=== PATIENT | male | born 1975 | race African-American/Black ===

== ENCOUNTER 2018-03-08 12:46 | Inpatient (IN) | payer OTHER ==
[2018-03-08 13:04] VITALS: BMI 42.4
--- NOTE | 2018-03-08 13:22 | PDOC ---
History of Present Illness - General Chief Complaint: Shortness of Breath Stated Complaint: SHORTNESS OF BREATH Time Seen by Provider: 03/08/18 13:22 - History of Present Illness Initial Comments: 03/08/18 14:15 Mr. Marte is a 42 yo male w/ pmh of HTN, HLD who presents for evaluation of several day history of right sided lower chest/upper abdominal pain. He reports this has been constant since Tuesday when he presented to [facility] however he elected to leave AMA after being told he would need a CT scan. Patient blood pressure in triage was 219/141; patient reports he is not on anti- hypertensives as he does not have a PCP. Patient also endorses some difficulty breathing which he had initially attributed to cats in the house where he is currently living. He further endorses significant cough productive of phlegm. Allergies: penicillin. Past History - Past Medical History Allergies/Adverse Reactions: Allergies Allergy/AdvReac Type Severity Reaction Status Date / Time No Known Allergies Allergy Verified 03/08/18 13:01 Home Medications: Ambulatory Orders NK [No Known Home Medication] 03/08/18 COPD: No CHF: No HTN: Yes (obesity) - Suicide/Smoking/Psychosocial Hx Smoking History: Current every day smoker Have you smoked in the past 12 months: No Number of Cigarettes Smoked Daily: 20 Information on smoking cessation initiated: No Hx Alcohol Use: Yes (6 pack daily) Drug/Substance Use Hx: No Substance Use Type: Alcohol Review of Systems - Review of Systems Comments:: 03/08/18 14:20 GENERAL/CONSTITUTIONAL: No fever or chills. No weakness. HEAD, EYES, EARS, NOSE AND THROAT: No change in vision. No ear pain or discharge. No sore throat. CARDIOVASCULAR: +Right sided chest pain w/ SOB as described. RESPIRATORY: +Intermittent cough for several days. GASTROINTESTINAL: +RUQ constant sharp pain. No nausea, vomiting, diarrhea or constipation. GENITOURINARY: No dysuria, frequency, or change in urination. MUSCULOSKELETAL: No joint or muscle swelling or pain. No neck or back pain. SKIN: No rash NEUROLOGIC: No headache, vertigo, loss of consciousness, or change in strength/ sensation. ENDOCRINE: No increased thirst. No abnormal weight change HEMATOLOGIC/LYMPHATIC: No anemia, easy bleeding, or history of blood clots. ALLERGIC/IMMUNOLOGIC: No hives or skin allergy. *Physical Exam - Vital Signs Last Vital Signs Temp Pulse Resp BP Pulse Ox 98.9 F 102 H 18 219/141 H 100 03/08/18 13:01 03/08/18 13:01 03/08/18 13:01 03/08/18 13:01 03/08/18 13:01 - Physical Exam Comments: 03/08/18 14:21 GENERAL: +Patient morbidly obese, in visible pain. Awake, alert, and fully oriented HEAD: No signs of trauma, normocephalic, atraumatic EYES: PERRLA, EOMI, sclera anicteric, conjunctiva clear ENT: Auricles normal inspection, hearing grossly normal, nares patent, oropharynx clear without exudates. Moist mucosa NECK: Normal ROM, supple, no lymphadenopathy, JVD, or masses LUNGS: +Exam limited by body habitus and cooperation. Speaks full sentences HEART: + Tachycardic, regular rhythm, normal S1 and S2, no murmurs, rubs or gallops, peripheral pulses normal and equal bilaterally. ABDOMEN: Soft, nontender to deep palpation, normoactive bowel sounds. No guarding, no rebound. No masses EXTREMITIES: Normal inspection, Normal range of motion, no edema. No clubbing or cyanosis. NEUROLOGICAL: Cranial nerves II through XII grossly intact. Normal speech, normal gait, no focal sensorimotor deficits SKIN: Warm, Dry, normal turgor, no rashes or lesions noted. 03/08/18 14:39 ED Treatment Course - LABORATORY CBC & Chemistry Diagram: 03/08/18 14:24 03/08/18 14:24 Medical Decision Making - Medical Decision Making 03/08/18 14:38 Mr. Marte is a 42 yo male w/ pmh as described who presents for evaluation of significant hypertension with chest pain and cough concerning for aortic dissection vs. PE vs. hypertensive urgency vs. viral illness. Workup started with labs, EKG, CXR. Will order CT/US pending kidney function. 20mg labetalol given for blood pressure control in addition to duoneb breathing treatment and 4mg morphine for pain control. 03/08/18 15:03 Repeat blood pressure 159 systolic. Additional 40 mg labetalol given for increased BP control given possibility of dissection. 03/08/18 15:37 Patient evaluated at bedside w/ US. No acute aortic dissection appreciated 2/ aortic width 3cm at widest portion. Stones noted in gall bladder without wall thickening. No pleural effusion / b-lines noted on lung exam. Exam somewhat limited by patient's body habitus. Additional 40mg of labetalol again given for BP control. Formal RUQ US ordered for further evaluation of Gall bladder. EKG regular rate, regular rhythm, normal access, normal interval, no ST elevations or depressions. RBBB noted. Grossly normal EKG. 03/08/18 17:01 Patient noted to have elevated d-dimer as below. Unable to perform CTA given elevated creatinine. Will administer lovenox for possible PE. US DVT study likewise ordered. 03/08/18 17:47 US confirmed stones w/out evidence of cholecystitis. DVT study negative. Admitting patient for V/Q study and further BP management. 03/08/18 17:59 Hospitalist paged for admission. 03/08/18 18:07 Patient admitted to hospitalist. Laboratory Results - last 24 hr 03/08/18 03/08/18 03/08/18 14:24 14:24 14:24 WBC 8.1 RBC 4.55 Hgb 14.2 Hct 43.9 MCV 96.5 H MCH 31.2 MCHC 32.3 RDW 16.2 H Plt Count 266 MPV 7.3 L Absolute Neuts (auto) 5.7 Neutrophils % 69.7 Lymphocytes % 21.1 Monocytes % 7.3 Eosinophils % 1.4 Basophils % 0.5 Nucleated RBC % 0 PT with INR 12.00 INR 1.02 PTT (Actin FS) 30.8 D-Dimer Sodium 140 Potassium 4.0 Chloride 104 Carbon Dioxide 29 Anion Gap 7 L BUN 14 Creatinine 1.7 H Creat Clearance w eGFR 44.64 Random Glucose 98 Lactic Acid Calcium 9.3 Total Bilirubin 0.3 AST 27 ALT 32 Alkaline Phosphatase 106 Total Protein 8.1 Albumin 3.7 Blood Type Antibody Screen 03/08/18 03/08/18 03/08/18 14:24 14:36 14:40 WBC RBC Hgb Hct MCV MCH MCHC RDW Plt Count MPV Absolute Neuts (auto) Neutrophils % Lymphocytes % Monocytes % Eosinophils % Basophils % Nucleated RBC % PT with INR INR PTT (Actin FS) D-Dimer 833 H Sodium Potassium Chloride Carbon Dioxide Anion Gap BUN Creatinine Creat Clearance w eGFR Random Glucose Lactic Acid 1.0 Calcium Total Bilirubin AST ALT Alkaline Phosphatase Total Protein Albumin Blood Type O POSITIVE Antibody Screen Negative *DC/Admit/Observation/Transfer Diagnosis at time of Disposition: Hypertensive urgency Hypertension Qualifiers: Hypertension type: unspecified Qualified Code(s): I10 - Essential (primary) hypertension Cholelithiasis Qualifiers: Cholelithiasis location: gallbladder Cholecystitis presence: without cholecystitis Biliary obstruction: without biliary obstruction Qualified Code(s) : K80.20 - Calculus of gallbladder without cholecystitis without obstruction Abdominal pain Qualifiers: Abdominal location: right upper quadrant Qualified Code(s): R10.11 - Right upper quadrant pain - Discharge Dispostion Decision to Admit order: Yes - Referrals - Patient Instructions - Post Discharge Activity
--- NOTE | 2018-03-08 13:49 | PDOC ---
Attending Attestation - HPI HPI: 03/08/18 14:15 This patient is a 42 year old male with PMHx of HTN (never been treated with medication due to insurance issues),HLD, who presents with 5 days of RUQ and R lower chest pain. Patient states that Tuesday he was seen at [facility], left AMA when told he would need a CT scan. He is now complaining of RUQ and lower chest pain that he describes as severe, constant. Hr is also having difficulty breathing. Patient also endorses some difficulty breathing (believes he is allergic to cats). He further endorses significant cough productive of phlegm. Allergies: penicillin. Social Hx: 6 pack daily, 20 cig/day. PCP: none <Adelaida Power - Last Filed: 03/08/18 14:46> - Resident Resident Name: Edmond Zhao - ED Attending Attestation I have performed the following: I have examined & evaluated the patient, The case was reviewed & discussed with the resident, I agree w/resident's findings & plan, Exceptions are as noted - Physicial Exam PE: 03/08/18 16:00 Patient is awake and alert, obese, hypertensive, in mild distress Normocephalic, atraumatic PERRLA, EOMI No JVD CTA RRR No lower extremity edema - Medical Decision Making 03/08/18 16:00 Patient is a 42-year-old male with history of hypertension, noncompliant with his medication regimen who presents with blood pressure of 219/140 with right- sided abdominal/right chest pain. Symptoms consistent with hypertensive emergency. Will initiate labetalol boluses. Differential diagnoses includes cholelithiasis versus PE versus dissection versus ACS. EKG shows no evidence of acute ischemia, RBBB is noted. Chest x-ray reveals cardiomegaly but no evidence of widened mediastinum. Bedside ultrasound shows diffuse hypokinesis but no evidence of a pleural effusion or an aortic flap. We'll obtain d-dimer. Will obtain right upper quadrant ultrasound. Will reassess. <Claude Morgan - Last Filed: 03/08/18 16:02>
[2018-03-08] MEDS ORDERED: LABETALOL HCL 5 MG/1 ML (100MG/20 ML VIAL) IVPUSH ONE ×3 (14:11→15:30)
[2018-03-08] MEDS ORDERED: ALBUTEROL SO4 2.5/IPRATROPIUM 0.5 INH SOL 3 ML VIAL.NEB. NEB ONE ×2 (14:12→21:55)
[2018-03-08] MEDS ORDERED: morphine CARPU-JECT 4 MG/1 ML DISP.SYRIN IVPUSH ONE (14:31)
[2018-03-08 14:35] LABS: BASO % 0.5 % (0-2.0); EOS % 1.4 % (0-4.5); HEMATOCRIT 43.9 % (35.4-49); HEMOGLOBIN 14.2 GM/dL (11.7-16.9); LYMPH % 21.1 % (8-40); MCH 31.2 pg (25.7-33.7); MCHC 32.3 g/dl (32.0-35.9); MEAN CELL VOLUME 96.5 fl (80-96); MEAN PLT VOLUME 7.3 fl (7.5-11.1); MONO % 7.3 % (3.8-10.2); NEUT % 69.7 % (42.8-82.8); PLATELET COUNT 266 K/MM3 (134-434); RBC 4.55 M/mm3 (4.00-5.60); RDW 16.2 % (11.9-15.9); WHITE BLOOD COUNT 8.1 K/mm3 (4.0-10.0)
[2018-03-08 15:06] LABS: INR 1.02 (0.83-1.09)
[2018-03-08 15:09] LABS: ACTIVATED PTT 30.8 SECONDS (25.2-36.5)
[2018-03-08 15:12] LABS: ALBUMIN 3.7 g/dl (3.4-5.0); ALK PHOS 106 U/L (45-117); ANION GAP 7 MMOL/L (8-16); BILIRUBIN,TOTAL 0.3 mg/dL (0.2-1); BLOOD UREA NITROGEN 14 mg/dL (7-18); CALCIUM 9.3 mg/dL (8.5-10.1); CHLORIDE 104 mmol/L (98-107); CO2 29 mmol/L (21-32); CREATININE 1.7 mg/dL (0.55-1.3); GLUCOSE,RANDOM 98 mg/dL (74-106); SGOT/AST 27 U/L (15-37); SGPT/ALT 32 U/L (13-61); SODIUM 140 mmol/L (136-145); TOT PROT 8.1 g/dl (6.4-8.2)
[2018-03-08] MEDS ORDERED: METOPROLOL TARTRATE 50 MG TABLET (FP) PO ONE (16:51)
[2018-03-08] MEDS: ENOXAPARIN NA (PORCINE) 120 MG/0.8 ML DISP.SYRIN SQ SCH (18:06)
[2018-03-08] MEDS ORDERED: ENOXAPARIN NA (PORCINE) 80 MG/0.8 ML DISP.SYRIN SQ ONE (18:09)
[2018-03-08] MEDS ORDERED: ENOXAPARIN NA (PORCINE) 60 MG/0.6 ML DISP.SYRIN SQ ONE (18:09)
[2018-03-08] MEDS ORDERED: METOPROLOL TARTRATE 25 MG TABLET (FP) ONE (18:10)
[2018-03-08 19:41] LABS: URINE APPEARANCE CLEAR; URINE BILIRUBIN NEGATIVE (<2.0 mg/dL); URINE COLOR DKYELLOW; URINE GLUCOSE (UA) NEGATIVE (NEGATIVE); URINE KETONE NEGATIVE (NEGATIVE); URINE LEUK ESTERASE NEGATIVE (NEGATIVE); URINE NITRITE NEGATIVE (NEGATIVE); URINE PROTEIN 3+ (NEGATIVE)
[2018-03-08 19:47] LABS: EPI CELLS RARE /HPF (FEW); URINE HYALINE CAST 6 /lpf; URINE MUCUS FEW
[2018-03-08] MEDS ORDERED: ACETAMINOPHEN 325 MG TABLET (FP) PO PRN (19:55)
--- NOTE | 2018-03-08 19:56 | HP ---
Admitting History and Physical - Primary Care Physician PCP: Herlinda Ronquillo - Admission History of Present Illness: 42 year old male with PMHx of HTN (never been treated with medication due to insurance issues),HLD, who presents with 5 days of RUQ and R lower chest pain. Patient states that Tuesday he was seen at [facility], left AMA when told he would need a CT scan. He is now complaining of RUQ and lower chest pain that he describes as severe, constant. patient also c/o sob and cough with some phlegm - Past Medical History Cardiovascular: Yes: HTN, Hyperlipdemia - Smoking History Smoking history: Current every day smoker Have you smoked in the past 12 months: No Aproximately how many cigarettes per day: 20 - Alcohol/Substance Use Hx Alcohol Use: Yes (6 pack daily) Home Medications - Allergies Allergies/Adverse Reactions: Allergies Allergy/AdvReac Type Severity Reaction Status Date / Time No Known Allergies Allergy Verified 03/08/18 13:01 - Home Medications Home Medications: Ambulatory Orders NK [No Known Home Medication] 03/08/18 Physical Examination Vital Signs: Vital Signs Temperature 97.9 F 03/08/18 19:09 Pulse Rate 83 03/08/18 19:09 Respiratory Rate 20 03/08/18 19:09 Blood Pressure 162/107 H 03/08/18 19:09 O2 Sat by Pulse Oximetry (%) 100 03/08/18 19:09 Constitutional: Yes: No Distress HENT: Yes: Atraumatic Neck: Yes: Supple Cardiovascular: Yes: Regular Rate and Rhythm Respiratory: Yes: CTA Bilaterally, Rhonchi Gastrointestinal: Yes: Normal Bowel Sounds Extremities: Yes: WNL Edema: No Peripheral Pulses WNL: Yes Neurological: Yes: Alert, Oriented Labs: CBC, BMP 03/08/18 14:24 03/08/18 14:24 Problem List - Problems (1) Abdominal pain Code(s): R10.9 - UNSPECIFIED ABDOMINAL PAIN Qualifiers: Abdominal location: right upper quadrant Qualified Code(s): R10.11 - Right upper quadrant pain (2) Cholelithiasis Code(s): K80.20 - CALCULUS OF GALLBLADDER W/O CHOLECYSTITIS W/O OBSTRUCTION Qualifiers: Cholelithiasis location: gallbladder Cholecystitis presence: without cholecystitis Biliary obstruction: without biliary obstruction Qualified Code(s): K80.20 - Calculus of gallbladder without cholecystitis without obstruction (3) Hypertension Code(s): I10 - ESSENTIAL (PRIMARY) HYPERTENSION Qualifiers: Hypertension type: unspecified Qualified Code(s): I10 - Essential (primary ) hypertension (4) Hypertensive urgency Code(s): I16.0 - HYPERTENSIVE URGENCY Assessment/Plan Laboratory Tests 03/08/18 03/08/18 03/08/18 14:24 14:24 14:24 WBC 8.1 RBC 4.55 Hgb 14.2 Hct 43.9 MCV 96.5 H MCH 31.2 MCHC 32.3 RDW 16.2 H Plt Count 266 MPV 7.3 L Absolute Neuts (auto) 5.7 Neutrophils % 69.7 Lymphocytes % 21.1 Monocytes % 7.3 Eosinophils % 1.4 Basophils % 0.5 Nucleated RBC % 0 PT with INR 12.00 INR 1.02 PTT (Actin FS) 30.8 D-Dimer Sodium 140 Potassium 4.0 Chloride 104 Carbon Dioxide 29 Anion Gap 7 L BUN 14 Creatinine 1.7 H Creat Clearance w eGFR 44.64 Random Glucose 98 Lactic Acid Calcium 9.3 Total Bilirubin 0.3 AST 27 ALT 32 Alkaline Phosphatase 106 Creatine Kinase Troponin I Total Protein 8.1 Albumin 3.7 Urine Color Urine Appearance Urine pH Ur Specific [place] Urine Protein Urine Glucose (UA) Urine Ketones Urine Blood Urine Nitrite Urine Bilirubin Urine Urobilinogen Ur Leukocyte Esterase Urine WBC (Auto) Urine RBC (Auto) Ur Epithelial Cells Hyaline Casts Urine Mucus Blood Type Antibody Screen 03/08/18 03/08/18 03/08/18 14:24 14:36 14:40 WBC RBC Hgb Hct MCV MCH MCHC RDW Plt Count MPV Absolute Neuts (auto) Neutrophils % Lymphocytes % Monocytes % Eosinophils % Basophils % Nucleated RBC % PT with INR INR PTT (Actin FS) D-Dimer 833 H Sodium Potassium Chloride Carbon Dioxide Anion Gap BUN Creatinine Creat Clearance w eGFR Random Glucose Lactic Acid 1.0 Calcium Total Bilirubin AST ALT Alkaline Phosphatase Creatine Kinase Troponin I Total Protein Albumin Urine Color Urine Appearance Urine pH Ur Specific [place] Urine Protein Urine Glucose (UA) Urine Ketones Urine Blood Urine Nitrite Urine Bilirubin Urine Urobilinogen Ur Leukocyte Esterase Urine WBC (Auto) Urine RBC (Auto) Ur Epithelial Cells Hyaline Casts Urine Mucus Blood Type O POSITIVE Antibody Screen Negative 03/08/18 03/08/18 17:49 18:00 WBC RBC Hgb Hct MCV MCH MCHC RDW Plt Count MPV Absolute Neuts (auto) Neutrophils % Lymphocytes % Monocytes % Eosinophils % Basophils % Nucleated RBC % PT with INR INR PTT (Actin FS) D-Dimer Sodium Potassium Chloride Carbon Dioxide Anion Gap BUN Creatinine Creat Clearance w eGFR Random Glucose Lactic Acid Calcium Total Bilirubin AST ALT Alkaline Phosphatase Creatine Kinase 433 H Troponin I 0.03 Total Protein Albumin Urine Color Dkyellow Urine Appearance Clear Urine pH 5.0 Ur Specific [place] 1.031 Urine Protein 3+ H Urine Glucose (UA) Negative Urine Ketones Negative Urine Blood Negative Urine Nitrite Negative Urine Bilirubin Negative Urine Urobilinogen 2.0 Ur Leukocyte Esterase Negative Urine WBC (Auto) 2 Urine RBC (Auto) 5 Ur Epithelial Cells Rare Hyaline Casts 6 Urine Mucus Few Blood Type Antibody Screen Active Medications Generic Name Dose Route Start Last Admin Trade Name Freq PRN Reason Stop Dose Admin Enoxaparin Sodium 120 mg 03/08/18 17:15 03/08/18 18:06 Lovenox - SQ 120 mg ONCE [facility] Administration Heparin Sodium (Porcine) 5,000 unit 03/08/18 22:00 Heparin - SQ BID [facility], [facility]
[2018-03-08] MEDS ORDERED: amLODIPine BESYLATE 5 MG TABLET (FP) ONE (20:30)
[2018-03-08] MEDS ORDERED: ACETAMINOPHEN 325 MG TABLET (FP) ONE (20:30)
[2018-03-08] MEDS ORDERED: morphine SULFATE 4 MG/ML VIAL IVPUSH PRN (20:34)
[2018-03-08] MEDS: amLODIPine BESYLATE 10 MG TABLET (FP) PO SCH (20:40)
[2018-03-08] MEDS ORDERED: CEFTRIAXONE 1 GM/50 ML BAG ONE (21:55)
[2018-03-08] MEDS ORDERED: morphine SULFATE 4 MG/ML VIAL ONE (22:20)
[2018-03-08] MEDS: CEFTRIAXONE 1 GM in DEXTROSE 5%-WATER - 50 ML IVPB SCH (22:39)
[2018-03-08] MEDS: ALBUTEROL SO4 2.5/IPRATROPIUM 0.5 INH SOL 3 ML VIAL.NEB. NEB PRN (22:40)
[2018-03-08] MEDS: HEPARIN NA (PORCINE) 5,000 UNITS/ML 1ML VIAL SQ SCH (23:06)
[2018-03-09] MEDS: ALBUTEROL SO4 2.5/IPRATROPIUM 0.5 INH SOL 3 ML VIAL.NEB. NEB PRN ×2 (03:40→08:19)
[2018-03-09] MEDS ORDERED: PNEUMOC 13-VAL CONJ-DIP CRM/PF 0.5 ML DISP.SYRIN IM ONE (03:53)
[2018-03-09 06:13] LABS: BASO % 0.2 % (0-2.0); EOS % 2.2 % (0-4.5); HEMOGLOBIN 12.7 GM/dL (11.7-16.9); LYMPH % 30.9 % (8-40); MCH 31.5 pg (25.7-33.7); MCHC 32.5 g/dl (32.0-35.9); MEAN CELL VOLUME 96.9 fl (80-96); MEAN PLT VOLUME 7.4 fl (7.5-11.1); MONO % 8.9 % (3.8-10.2); NEUT % 57.8 % (42.8-82.8); PLATELET COUNT 242 K/MM3 (134-434); RBC 4.02 M/mm3 (4.00-5.60); RDW 16.3 % (11.9-15.9); WHITE BLOOD COUNT 8.4 K/mm3 (4.0-10.0)
[2018-03-09 07:13] LABS: ALBUMIN 3.2 g/dl (3.4-5.0); ALK PHOS 91 U/L (45-117); ANION GAP 7 MMOL/L (8-16); BILIRUBIN,TOTAL 0.5 mg/dL (0.2-1); BLOOD UREA NITROGEN 19 mg/dL (7-18); CALCIUM 8.4 mg/dL (8.5-10.1); CHLORIDE 103 mmol/L (98-107); CO2 28 mmol/L (21-32); CREATININE 1.7 mg/dL (0.55-1.3); GLUCOSE,RANDOM 87 mg/dL (74-106); POTASSIUM 3.6 mmol/L (3.5-5.1); SGOT/AST 25 U/L (15-37); SGPT/ALT 29 U/L (13-61); SODIUM 138 mmol/L (136-145)
[2018-03-09] MEDS ORDERED: PT OWN MED DRAWER 7, Y5N ONE (09:20)
[2018-03-09] MEDS: HEPARIN NA (PORCINE) 5,000 UNITS/ML 1ML VIAL SQ SCH ×2 (09:48→21:53)
[2018-03-09] MEDS: amLODIPine BESYLATE 10 MG TABLET (FP) PO SCH (09:48)
[2018-03-09] MEDS ORDERED: PNEUMOCOCCAL 23 VACCINE 0.5 ML VIAL IM ONE (10:00)
[2018-03-09] MEDS ORDERED: FLU VACCINE QUAD 60 MCG/0.5 ML (MDV 18-19) IM ONE (10:00)
--- NOTE | 2018-03-09 10:12 | CON.CARD ---
Consult Consult Specialty:: Cardiology Referred by:: Herlinda Ronquillo MD Reason for Consultation:: Hypertensive urgency - History of Present Illness Chief Complaint: Right pleurisy History of Present Illness: 42 year old male with PMHx of HTN (never been treated with medication due to insurance issues),HLD, who presents with 5 days of RUQ and R lower chest sharp, pleuritic pain. Patient states that Tuesday he was seen at [facility], left AMA when told he would need a CT scan. He is now complaining of RUQ and lower chest pain that he describes as severe, constant. patient also c/o sob and cough with some phlegm, await V/Q scan, BP improved. - History Source History Provided By: Patient Limitations to Obtaining History: No Limitations - Past Medical History Cardio/Vascular: Yes: HTN, Hyperlipdemia - Alcohol/Substance Use Hx Alcohol Use: Yes (6 pack daily) - Smoking History Smoking history: Current every day smoker Have you smoked in the past 12 months: No Aproximately how many cigarettes per day: 20 Home Medications - Allergies Allergies/Adverse Reactions: Allergies Allergy/AdvReac Type Severity Reaction Status Date / Time cat dander Allergy Verified 03/09/18 02:52 Penicillins Allergy Verified 03/09/18 02:52 - Home Medications Home Medications: Ambulatory Orders NK [No Known Home Medication] 03/08/18 Family Disease History - Family Disease History Family History: Denies Vital Signs: Vital Signs Temperature 98.2 F 03/09/18 06:00 Pulse Rate 71 03/09/18 06:00 Respiratory Rate 16 03/09/18 06:00 Blood Pressure 140/86 03/09/18 06:00 O2 Sat by Pulse Oximetry (%) 95 03/09/18 03:30 Constitutional: Yes: No Distress, Calm Neck: Yes: Supple Respiratory: Yes: Regular, CTA Bilaterally Gastrointestinal: Yes: Normal Bowel Sounds, Soft Cardiovascular: Yes: Regular Rate and Rhythm JVD: No Carotid Bruit: No Heart Sounds: Yes: S1, S2 Edema: No - Other Data Labs, Other Data: CBC, BMP 03/09/18 05:30 03/09/18 05:30 INR, PTT INR 1.02 (0.83-1.09) 03/08/18 14:24 Troponin, BNP 03/08/18 03/08/18 17:49 22:24 Troponin I 0.03 0.02 Troponin, BNP 03/08/18 03/08/18 17:49 22:24 Troponin I 0.03 0.02 NSR @ 88 RBBB Imaging - Results Chest X-ray: Report Reviewed (NAD) Ultrasound: Report Reviewed (Cholelithiasis without cholecystitis, fatty liver) Problem List - Problems (1) Hypertensive heart disease Code(s): I11.9 - HYPERTENSIVE HEART DISEASE WITHOUT HEART FAILURE Qualifiers: Heart failure presence: without heart failure Qualified Code(s): I11.9 - Hypertensive heart disease without heart failure (2) Chronic kidney disease (CKD) Code(s): N18.9 - CHRONIC KIDNEY DISEASE, UNSPECIFIED Qualifiers: Chronic kidney disease stage: stage 2 (mild) Qualified Code(s): N18.2 - Chronic kidney disease, stage 2 (mild) (3) Pleurisy Code(s): R09.1 - PLEURISY (4) Hypertensive urgency Code(s): I16.0 - HYPERTENSIVE URGENCY (5) Proteinuria Code(s): R80.9 - PROTEINURIA, UNSPECIFIED Qualifiers: Proteinuria type: unspecified Qualified Code(s): R80.9 - Proteinuria, unspecified Assessment/Plan 1. Pleurisy r/o RLL PE 2. Hypertensive urgency 3. CKD with proteinuria 4. Hyppertensive heart disease P:1. Started on Norvasc 10 qd, would start ARB once renal fxn stable given proteinuria 2. Ruled out for ID, f/u V/Q scan 3. Echo to assess ventricular and valve fxn 4. Thank you for consultative opportunity
--- NOTE | 2018-03-09 10:41 | CONSULT ---
Consultation: REQUESTING PROVIDER: Dr. Zhao CONSULT REQUEST: We have been asked to medically evaluate this patient for pulmonology evaluation for right sided pleuritic chest pain. HISTORY OF PRESENT ILLNESS: 42 yo male with PMH HTN, HLD, Asthma admitted with a complaint of SOB, productive cough for white sputum, and right sided pleuritic chest pain for 1 week. He states that he has a history of asthma and has required multiple hospitalizations throughout his life for asthma exacerbations and pneumonia. He states his asthma has been very well controlled recently and he rarely requires any inhaler use. He states that his girlfriends mother recently got 3 kittens last week and his asthma has been much worse since then in addition to some nasal congestion as well. He says that his pain began around that time. The pain is worse on inspiration and with coughing. He states he has had chest soreness from coughing and asthma before and this is different from prior events. He denies any fevers, chills, headache, leg or calf swelling/tenderness/ redness. He denies any history of DVT or PE and denies any family history of clotting disorders or cancers. REVIEW OF SYSTEMS: CONSTITUTIONAL: Absent: fever, chills, diaphoresis, generalized weakness, malaise, loss of appetite, weight change HEENT: Absent: rhinorrhea, nasal congestion, throat pain, throat swelling, difficulty swallowing, mouth swelling, ear pain, eye pain, visual changes CARDIOVASCULAR: pleuritic chest pain, Absent: syncope, palpitations, irregular heart rate, lightheadedness, peripheral edema RESPIRATORY: cough, shortness of breath, dyspnea with exertion, wheezing Absent: orthopnea, , stridor, hemoptysis GASTROINTESTINAL: Absent: abdominal pain, abdominal distension, nausea, vomiting, diarrhea, constipation, melena, hematochezia GENITOURINARY: Absent: dysuria, frequency, urgency, hesitancy, hematuria, flank pain, genital pain MUSCULOSKELETAL: Absent: myalgia, arthralgia, joint swelling, back pain, neck pain SKIN: Absent: rash, itching, pallor HEMATOLOGIC/IMMUNOLOGIC: Absent: easy bleeding, easy bruising, lymphadenopathy, frequent infections ENDOCRINE: Absent: unexplained weight gain, unexplained weight loss, heat intolerance, cold intolerance NEUROLOGIC: Absent: headache, focal weakness or paresthesias, dizziness, unsteady gait, seizure, mental status changes, bladder or bowel incontinence PSYCHIATRIC: Absent: anxiety, depression, suicidal or homicidal ideation, hallucinations. PHYSICAL EXAMINATION Vital Signs - 24 hr 03/08/18 03/08/18 03/08/18 13:01 13:55 14:24 Temperature 98.9 F Pulse Rate 102 H Pulse Rate [ 90 92 H Left Radial] Respiratory 18 18 18 Rate Blood Pressure 219/141 H Blood Pressure 203/131 H 186/118 H [Right Arm] O2 Sat by Pulse 100 96 98 Oximetry (%) 03/08/18 03/08/18 03/08/18 14:51 15:16 15:30 Temperature Pulse Rate Pulse Rate [ 83 83 84 Left Radial] Respiratory 17 17 22 H Rate Blood Pressure Blood Pressure 159/115 H 146/100 184/111 H [Right Arm] O2 Sat by Pulse 96 96 100 Oximetry (%) 03/08/18 03/08/18 03/08/18 16:00 18:04 19:09 Temperature 97.9 F Pulse Rate Pulse Rate [ 83 86 83 Left Radial] Respiratory 19 20 20 Rate Blood Pressure Blood Pressure 148/95 153/102 H 162/107 H [Right Arm] O2 Sat by Pulse 100 100 100 Oximetry (%) 03/08/18 03/09/18 03/09/18 20:40 02:25 03:30 Temperature 98.5 F 98.2 F Pulse Rate 80 Pulse Rate [ 75 88 Left Radial] Respiratory 20 19 18 Rate Blood Pressure 174/111 H Blood Pressure 162/117 H 157/95 [Right Arm] O2 Sat by Pulse 100 95 Oximetry (%) 03/09/18 03/09/18 06:00 10:00 Temperature 98.2 F 98.4 F Pulse Rate 71 79 Pulse Rate [ Left Radial] Respiratory 16 18 Rate Blood Pressure 140/86 161/100 Blood Pressure [Right Arm] O2 Sat by Pulse Oximetry (%) GENERAL: A&O, no acute distress HEAD: Normocephalic, atraumatic. EYES: PERRL, no scleral icterus EARS, NOSE, THROAT: oropharynx clear without exudates. Moist mucous membranes. LUNGS: CTA b/l, no crackles or wheezes HEART: Regular rate and rhythm, normal S1 and S2 without murmur ABDOMEN: Soft, nontender to palpation, normoactive bowel sounds MUSCULOSKELETAL: No point tendernesss, pain is somewhat reproducible to deep palpation of ribs on the right EXTREMITIES: 2+ pulses, warm, well-perfused. No peripheral edema. No calf tenderness, erythema or swelling NEUROLOGICAL: Cranial nerves II-XII grossly intact. Normal speech. Laboratory Results - last 24 hr 03/08/18 03/08/18 03/08/18 14:24 14:24 14:24 WBC 8.1 RBC 4.55 Hgb 14.2 Hct 43.9 MCV 96.5 H MCH 31.2 MCHC 32.3 RDW 16.2 H Plt Count 266 MPV 7.3 L Absolute Neuts (auto) 5.7 Neutrophils % 69.7 Lymphocytes % 21.1 Monocytes % 7.3 Eosinophils % 1.4 Basophils % 0.5 Nucleated RBC % 0 PT with INR 12.00 INR 1.02 PTT (Actin FS) 30.8 D-Dimer Sodium 140 Potassium 4.0 Chloride 104 Carbon Dioxide 29 Anion Gap 7 L BUN 14 Creatinine 1.7 H Creat Clearance w eGFR 44.64 Random Glucose 98 Hemoglobin A1c % Lactic Acid Calcium 9.3 Total Bilirubin 0.3 AST 27 ALT 32 Alkaline Phosphatase 106 Creatine Kinase Creatine Kinase Index CK-MB (CK-2) Troponin I Total Protein 8.1 Albumin 3.7 Urine Color Urine Appearance Urine pH Ur Specific [place] Urine Protein Urine Glucose (UA) Urine Ketones Urine Blood Urine Nitrite Urine Bilirubin Urine Urobilinogen Ur Leukocyte Esterase Urine WBC (Auto) Urine RBC (Auto) Ur Epithelial Cells Hyaline Casts Urine Mucus Blood Type Antibody Screen 03/08/18 03/08/18 03/08/18 14:24 14:36 14:40 WBC RBC Hgb Hct MCV MCH MCHC RDW Plt Count MPV Absolute Neuts (auto) Neutrophils % Lymphocytes % Monocytes % Eosinophils % Basophils % Nucleated RBC % PT with INR INR PTT (Actin FS) D-Dimer 833 H Sodium Potassium Chloride Carbon Dioxide Anion Gap BUN Creatinine Creat Clearance w eGFR Random Glucose Hemoglobin A1c % Lactic Acid 1.0 Calcium Total Bilirubin AST ALT Alkaline Phosphatase Creatine Kinase Creatine Kinase Index CK-MB (CK-2) Troponin I Total Protein Albumin Urine Color Urine Appearance Urine pH Ur Specific [place] Urine Protein Urine Glucose (UA) Urine Ketones Urine Blood Urine Nitrite Urine Bilirubin Urine Urobilinogen Ur Leukocyte Esterase Urine WBC (Auto) Urine RBC (Auto) Ur Epithelial Cells Hyaline Casts Urine Mucus Blood Type O POSITIVE Antibody Screen Negative 03/08/18 03/08/18 03/08/18 17:49 18:00 22:24 WBC RBC Hgb Hct MCV MCH MCHC RDW Plt Count MPV Absolute Neuts (auto) Neutrophils % Lymphocytes % Monocytes % Eosinophils % Basophils % Nucleated RBC % PT with INR INR PTT (Actin FS) D-Dimer Sodium Potassium Chloride Carbon Dioxide Anion Gap BUN Creatinine Creat Clearance w eGFR Random Glucose Hemoglobin A1c % Lactic Acid Calcium Total Bilirubin AST ALT Alkaline Phosphatase Creatine Kinase 433 H Creatine Kinase Index 0.3 CK-MB (CK-2) 1.3 Troponin I 0.03 Total Protein Albumin Urine Color Dkyellow Urine Appearance Clear Urine pH 5.0 Ur Specific [place] 1.031 Urine Protein 3+ H Urine Glucose (UA) Negative Urine Ketones Negative Urine Blood Negative Urine Nitrite Negative Urine Bilirubin Negative Urine Urobilinogen 2.0 Ur Leukocyte Esterase Negative Urine WBC (Auto) 2 Urine RBC (Auto) 5 Ur Epithelial Cells Rare Hyaline Casts 6 Urine Mucus Few Blood Type O POSITIVE Antibody Screen 03/08/18 03/08/18 03/09/18 22:24 22:24 05:30 WBC 8.4 RBC 4.02 Hgb 12.7 Hct 39.0 MCV 96.9 H MCH 31.5 MCHC 32.5 RDW 16.3 H Plt Count 242 MPV 7.4 L Absolute Neuts (auto) 4.8 Neutrophils % 57.8 Lymphocytes % 30.9 D Monocytes % 8.9 Eosinophils % 2.2 Basophils % 0.2 Nucleated RBC % 0 PT with INR INR PTT (Actin FS) D-Dimer Sodium Potassium Chloride Carbon Dioxide Anion Gap BUN Creatinine Creat Clearance w eGFR Random Glucose Hemoglobin A1c % 5.5 Lactic Acid Calcium Total Bilirubin AST ALT Alkaline Phosphatase Creatine Kinase 369 H Creatine Kinase Index 0.2 CK-MB (CK-2) 1.1 Troponin I 0.02 Total Protein Albumin Urine Color Urine Appearance Urine pH Ur Specific [place] Urine Protein Urine Glucose (UA) Urine Ketones Urine Blood Urine Nitrite Urine Bilirubin Urine Urobilinogen Ur Leukocyte Esterase Urine WBC (Auto) Urine RBC (Auto) Ur Epithelial Cells Hyaline Casts Urine Mucus Blood Type Antibody Screen 03/09/18 05:30 WBC RBC Hgb Hct MCV MCH MCHC RDW Plt Count MPV Absolute Neuts (auto) Neutrophils % Lymphocytes % Monocytes % Eosinophils % Basophils % Nucleated RBC % PT with INR INR PTT (Actin FS) D-Dimer Sodium 138 Potassium 3.6 Chloride 103 Carbon Dioxide 28 Anion Gap 7 L BUN 19 H Creatinine 1.7 H Creat Clearance w eGFR 44.64 Random Glucose 87 Hemoglobin A1c % Lactic Acid Calcium 8.4 L Total Bilirubin 0.5 AST 25 ALT 29 Alkaline Phosphatase 91 Creatine Kinase Creatine Kinase Index CK-MB (CK-2) Troponin I Total Protein 7.0 Albumin 3.2 L Urine Color Urine Appearance Urine pH Ur Specific [place] Urine Protein Urine Glucose (UA) Urine Ketones Urine Blood Urine Nitrite Urine Bilirubin Urine Urobilinogen Ur Leukocyte Esterase Urine WBC (Auto) Urine RBC (Auto) Ur Epithelial Cells Hyaline Casts Urine Mucus Blood Type Antibody Screen Active Medications Generic Name Dose Route Start Last Admin Trade Name Freq PRN Reason Stop Dose Admin Acetaminophen 650 mg 03/08/18 19:55 03/08/18 20:40 Tylenol - PO 650 mg Q6H PRN Administration FEVER Albuterol/Ipratropium 1 amp 03/08/18 20:34 03/09/18 08:19 Duoneb - NEB 1 amp Q4H PRN Administration SHORTNESS OF BREATH Amlodipine Besylate 10 mg 03/08/18 20:00 03/09/18 09:48 Norvasc - PO 10 mg DAILY THO Administration Enoxaparin Sodium 120 mg 03/08/18 17:15 03/08/18 18:06 Lovenox - SQ 120 mg ONCE THO Administration Heparin Sodium (Porcine) 5,000 unit 03/08/18 22:00 03/09/18 09:48 Heparin - SQ 5,000 unit BID THO Administration Ceftriaxone Sodium 1 gm/ 50 mls @ 100 mls/hr 03/08/18 20:45 03/08/18 22:39 Dextrose IVPB 03/09/18 20:44 100 mls/hr DAILY THO Administration Protocol Morphine Sulfate 3 mg 03/08/18 20:34 03/08/18 22:40 Morphine Sulfate IVPUSH 3 mg Q4H PRN Administration PAIN LEVEL 4 - 6 ASSESSMENT/PLAN: 42 yo male with PMH HTN, HLD, Asthma admitted with a complaint of SOB, productive cough for white sputum, and right sided pleuritic chest pain for 1 week. Acute Respiratory Distress with productive cough -Likely secondary to exacerbation of uncontrolled asthma, Unlikely infectious in etiology -ID consult -CXR noted without infiltrate -Duonebs QID -SoluMedrol 60 mg Q8 for 24 hours then convert to Prednisone 40 mg Daily for 5 days -Albuterol NEBS Q4 PRN Pleuritic Chest Pain -likely msk secondary to acute exacerbation of asthma and coughing -Unlikely PE with negative LE Duplex, saturating well on room air -No need for V/Q scan at this time -Morphine 3mg IV Q4 without much relief -Cardiology Consult HTN Urgency -Pt does not take medications outpatient due to prior insurance issues, but states he will find a primary and follow up -219/141 in ED -Norvasc 10 mg PO Daily, blood pressure improved CO[place]TTE vs probable CKD -Proteinurea noted on UA points towards CKD -Likely secondary to chronic uncontrolled HTN -control HTN during this admission and as an outpatient -avoid nephrotoxic drugs -Nephrology Consult DVT Prophylaxis -Heparin 5000 units SQ BID FEN -Fluids: none -Electrolytes: Monitor and replete lytes -Nutrition: Cholesterol/Fat/Na controlled diet Dispo: We will continue to follow the patient. Thank you for this consultative opportunity. Visit type - Emergency Visit Emergency Visit: Yes ED Registration Date: 03/08/18 Care time: The patient presented to the Emergency Department on the above date and was hospitalized for further evaluation of their emergent condition. - New Patient This patient is new to me today: Yes Date on this admission: 03/09/18 - Critical Care Critical Care patient: No
--- NOTE | 2018-03-09 12:17 | EKG ---
Test Reason : Blood Pressure : / mmHG Vent. Rate : 088 BPM Atrial Rate : 088 BPM P-R Int : 136 ms QRS Dur : 160 ms QT Int : 442 ms P-R-T Axes : 068 020 058 degrees QTc Int : 534 ms NORMAL SINUS RHYTHM RIGHT BUNDLE BRANCH BLOCK SEPTAL INFARCT , AGE UNDETERMINED ABNORMAL ECG NO PREVIOUS ECGS AVAILABLE Confirmed by KIM HUBBARD MD ([id number]) on 03/09/2018 12:17:12 PM Referred By: Confirmed By:KIM HUBBARD MD
--- NOTE | 2018-03-09 14:38 | CONSULT ---
Consultation: CONSULT REQUEST: Nephrology Consult HISTORY OF PRESENT ILLNESS: 42yo M with history of HLD and longstanding HTN who presented to the ER for R -sided flank pain for several days which is exacerbated by movements. Per chart , pt was seen at [facility] prior to his visit here, however left AMA after being told he would need a CT scan. During his admission here pt's BP has been overall high with max during ER assessment at 219/141. We were called to evaluate this pt due to his Cr of 1.7 without known baseline. Pt reports being previously on HCTZ and ACEi, however he reports stopping his antihypertensives due to some side effects that he was having. Pt currently has his intermittent pain (RUQ/R-sided lower chest wall), however denies headaches, blurry vision, SOB, dysuria, polyuria, hestiancy. Pt does endorse some sinus congestion, however he attributes it to having new kittens ( x3) in his home. PMHx: As above PSHx: SoHx: --SmokinPPD --Alcohol: 6pck daily --Drugs: denies --Lives at home with significant other; 3 new kittens Allergies: Cat dander Penicillin REVIEW OF SYSTEMS: CONSTITUTIONAL: Absent: fever, chills, diaphoresis, generalized weakness, malaise, loss of appetite, weight change HEENT: Absent: rhinorrhea, nasal congestion, throat pain, throat swelling, difficulty swallowing, mouth swelling, ear pain, eye pain, visual changes CARDIOVASCULAR: pleuritic chest pain, Absent: syncope, palpitations, irregular heart rate, lightheadedness, peripheral edema RESPIRATORY: cough, shortness of breath, dyspnea with exertion, wheezing Absent: orthopnea, , stridor, hemoptysis GASTROINTESTINAL: Absent: abdominal pain, abdominal distension, nausea, vomiting, diarrhea, constipation, melena, hematochezia GENITOURINARY: Present: Flank pain Absent: dysuria, frequency, urgency, hesitancy, hematuria, MUSCULOSKELETAL: Absent: myalgia, arthralgia, joint swelling, back pain, neck pain SKIN: Absent: rash, itching, pallor PSYCHIATRIC: Absent: anxiety, depression PHYSICAL EXAMINATION Vital Signs - 24 hr 03/09/18 03/09/18 03/09/18 06:00 09:00 10:00 Temperature 98.2 F 98.4 F Pulse Rate 71 79 Pulse Rate [ Left Radial] Respiratory 16 18 18 Rate Blood Pressure 140/86 161/100 Blood Pressure [Right Arm] O2 Sat by Pulse 95 Oximetry (%) GENERAL: NAD, Awake, alert, and fully oriented, laying in bed HEENT: EOMI, LU[place] FEL[place], sclera anicteric, MMM NECK: No JVD LUNGS: Slight expiratory wheezing diffusely. No crackles. No accessory muscle use. On RA HEART: RRR, normal S1 and S2 without murmur ABDOMEN: Soft, obese, NT/ND, normoactive BS MUSCULOSKELETAL: No CVA tenderness. Reproducible R-sided torso pain with palpation EXTREMITIES: 2+ pulses, warm, No peripheral edema. PSYCHIATRIC: Cooperative. Good eye contact. Appropriate mood and affect. SKIN: no rashes or lesions noted. Laboratory Results - last 24 hr 03/08/18 03/08/18 14:24 14:24 WBC RBC Hgb Hct MCV MCH MCHC RDW Plt Count MPV Absolute Neuts (auto) Neutrophils % Lymphocytes % Monocytes % Eosinophils % Basophils % Nucleated RBC % PT with INR 12.00 INR 1.02 PTT (Actin FS) 30.8 D-Dimer Sodium 140 Potassium 4.0 Chloride 104 Carbon Dioxide 29 Anion Gap 7 L BUN 14 Creatinine 1.7 H Creat Clearance w eGFR 44.64 Random Glucose 98 Hemoglobin A1c % Lactic Acid Calcium 9.3 Total Bilirubin 0.3 AST 27 ALT 32 Alkaline Phosphatase 106 Creatine Kinase Creatine Kinase Index CK-MB (CK-2) Troponin I Total Protein 8.1 Albumin 3.7 Urine Color Urine Appearance Urine pH Ur Specific [place] Urine Protein Urine Glucose (UA) Urine Ketones Urine Blood Urine Nitrite Urine Bilirubin Urine Urobilinogen Ur Leukocyte Esterase Urine WBC (Auto) Urine RBC (Auto) Ur Epithelial Cells Hyaline Casts Urine Mucus Blood Type Antibody Screen 03/08/18 18:00 WBC RBC Hgb Hct MCV MCH MCHC RDW Plt Count MPV Absolute Neuts (auto) Neutrophils % Lymphocytes % Monocytes % Eosinophils % Basophils % Nucleated RBC % PT with INR INR PTT (Actin FS) D-Dimer Sodium Potassium Chloride Carbon Dioxide Anion Gap BUN Creatinine Creat Clearance w eGFR Random Glucose Hemoglobin A1c % Lactic Acid Calcium Total Bilirubin AST ALT Alkaline Phosphatase Creatine Kinase Creatine Kinase Index CK-MB (CK-2) Troponin I Total Protein Albumin Urine Color Dkyellow Urine Appearance Clear Urine pH 5.0 Ur Specific [place] 1.031 Urine Protein 3+ H Urine Glucose (UA) Negative Urine Ketones Negative Urine Blood Negative Urine Nitrite Negative Urine Bilirubin Negative Urine Urobilinogen 2.0 Ur Leukocyte Esterase Negative Urine WBC (Auto) 2 Urine RBC (Auto) 5 Ur Epithelial Cells Rare Hyaline Casts 6 Urine Mucus Few Blood Type Antibody Screen 03/09/18 03/09/18 05:30 05:30 WBC 8.4 RBC 4.02 Hgb 12.7 Hct 39.0 MCV 96.9 H MCH 31.5 MCHC 32.5 RDW 16.3 H Plt Count 242 MPV 7.4 L Absolute Neuts (auto) 4.8 Neutrophils % 57.8 Lymphocytes % 30.9 D Monocytes % 8.9 Eosinophils % 2.2 Basophils % 0.2 Nucleated RBC % 0 PT with INR INR PTT (Actin FS) D-Dimer Sodium 138 Potassium 3.6 Chloride 103 Carbon Dioxide 28 Anion Gap 7 L BUN 19 H Creatinine 1.7 H Creat Clearance w eGFR 44.64 Random Glucose 87 Hemoglobin A1c % Lactic Acid Calcium 8.4 L Total Bilirubin 0.5 AST 25 ALT 29 Alkaline Phosphatase 91 Creatine Kinase Creatine Kinase Index CK-MB (CK-2) Troponin I Total Protein 7.0 Albumin 3.2 L Urine Color Urine Appearance Urine pH Ur Specific [place] Urine Protein Urine Glucose (UA) Urine Ketones Urine Blood Urine Nitrite Urine Bilirubin Urine Urobilinogen Ur Leukocyte Esterase Urine WBC (Auto) Urine RBC (Auto) Ur Epithelial Cells Hyaline Casts Urine Mucus Blood Type Antibody Screen Active Medications Generic Name Dose Route Start Last Admin Trade Name Freq PRN Reason Stop Dose Admin Acetaminophen 650 mg 03/08/18 19:55 03/08/18 20:40 Tylenol - PO 650 mg Q6H PRN Administration FEVER Albuterol/Ipratropium 1 amp 03/08/18 20:34 03/09/18 08:19 Duoneb - NEB 1 amp Q4H PRN Administration SHORTNESS OF BREATH Amlodipine Besylate 10 mg 03/08/18 20:00 03/09/18 09:48 Norvasc - PO 10 mg DAILY THO Administration Enoxaparin Sodium 120 mg 03/08/18 17:15 03/08/18 18:06 Lovenox - SQ 120 mg ONCE THO Administration Heparin Sodium (Porcine) 5,000 unit 03/08/18 22:00 03/09/18 09:48 Heparin - SQ 5,000 unit BID THO Administration Ceftriaxone Sodium 1 gm/ 50 mls @ 100 mls/hr 03/08/18 20:45 03/08/18 22:39 Dextrose IVPB 03/09/18 20:44 100 mls/hr DAILY THO Administration Protocol Methylprednisolone Sodium Succinate 60 mg 03/09/18 14:45 Solu-Medrol - IVPUSH 03/10/18 02:01 Q8H-IV THO Morphine Sulfate 3 mg 03/08/18 20:34 03/08/18 22:40 Morphine Sulfate IVPUSH 3 mg Q4H PRN Administration PAIN LEVEL 4 - 6 ASSESSMENT/PLAN: Acute kidney disease (? CKD stage IIIa) Proteinuria Hypertensive urgency HLD Pleuritic chest pain Reactive airway dz vs. asthma exacerbation --UA reviewed showing 3+ Protein and hyaline casts --GFR 57.4 today --Urine electrolytes and urine creatinine for assessment of FeNa --Highest suspicion: intrinsic disease 2/2 to uncontrolled HTN --Renal/bladder US --Agree with holding ACEi in acute setting --Control BP --Norvasc 10mg qDaily --Duoneb and medrol mgmt per pulmonology --Smoking cessation; alcohol cessation (observe for withdrawals) Dispo: Thank you for this consultation. Continue mgmt Case discussed with Dr. Magui Ryder, DO - IM PGY-2 Visit type - Emergency Visit Emergency Visit: Yes ED Registration Date: 03/08/18 Care time: The patient presented to the Emergency Department on the above date and was hospitalized for further evaluation of their emergent condition. - New Patient This patient is new to me today: Yes Date on this admission: 03/09/18 - Critical Care Critical Care patient: No
[2018-03-09] MEDS ORDERED: ALBUTEROL SO4 0.083% IH SOL 2.5 MG/3 ML VIAL.NEB. NEB PRN (14:42)
--- NOTE | 2018-03-09 14:44 | PN ---
Teaching Attending Note Name of Resident: Thaddeus Kaur ATTENDING PHYSICIAN STATEMENT I saw and evaluated the patient. I reviewed the resident's note and discussed the case with the resident. I agree with the resident's findings and plan as documented. SUBJECTIVE: Pt seen with Dr. Kaur. Briefly, 42yo male with h/o asthma, uncontrolled HTN, hyperlipidemia who was admitted with right sided back pain. Was recently exposed to cats to which he is allergic, started coughing with shortness of breath and wheezing. Used his ventolin inhaler without significant relief. Back pain positional, sharp, reproducible with palpation. No fevers, chills or sweats. He is a smoker, no family history of clots, is active, denies any leg trauma, swelling or pain. Saturating 100% on room air and not tachycardic. OBJECTIVE: Vital Signs Period Temp Pulse Resp BP Sys/Coffman Pulse Ox Last 24 Hr 97.9 F-98.5 F 71-88 16-22 140-184/86-117 95-100 Gen: NAD at rest Heart: RRR Lung: scattered rhonchi, wheezes Abd: soft, nontender Ext: no edema CBC, BMP 03/09/18 05:30 03/09/18 05:30 Active Medications Acetaminophen (Tylenol -) 650 mg PO Q6H PRN PRN Reason: FEVER Last Admin: 03/08/18 20:40 Dose: 650 mg Albuterol/Ipratropium (Duoneb -) 1 amp NEB Q4H PRN PRN Reason: SHORTNESS OF BREATH Last Admin: 03/09/18 08:19 Dose: 1 amp Amlodipine Besylate (Norvasc -) 10 mg PO DAILY THO Last Admin: 03/09/18 09:48 Dose: 10 mg Enoxaparin Sodium (Lovenox -) 120 mg SQ ONCE THO Last Admin: 03/08/18 18:06 Dose: 120 mg Heparin Sodium (Porcine) (Heparin -) 5,000 unit SQ BID THO Last Admin: 03/09/18 09:48 Dose: 5,000 unit Ceftriaxone Sodium 1 gm/ (Dextrose) 50 mls @ 100 mls/hr IVPB DAILY THO; Protocol Stop: 03/09/18 20:44 Last Admin: 03/08/18 22:39 Dose: 100 mls/hr Methylprednisolone Sodium Succinate (Solu-Medrol -) 60 mg IVPUSH Q8H-IV THO Stop: 03/10/18 02:01 Morphine Sulfate (Morphine Sulfate) 3 mg IVPUSH Q4H PRN PRN Reason: PAIN LEVEL 4 - 6 Last Admin: 03/08/18 22:40 Dose: 3 mg ASSESSMENT AND PLAN: Acute Asthma Exacerbation Atypical Back Pain Uncontrolled HTN Hyperlipidemia Likely CKD - short course of medrol, can likely change to prednisone in AM and complete 5 day course - inhaled bronchodilators standing and PRN - when ready for discharge, can discharge on LABA/ICS as well as albuterol inhaler - echocardiogram - can defer V/Q scan as clinical suspicion is low given saturating 100% on room air, not tachycardic, negative LE dopplers and no risk factors aside from smoking - V/Q scan in an acute asthma exacerbation would be unreliable as well - if any evidence of RV dysfunction, will address need for V/Q scan - outpt PFTs - smoking cessation - DVT prophylaxis Thank you for this consult Stef Hernadez MD
[2018-03-09] MEDS ORDERED: cefTRIAXone SODIUM 1 GM VIAL ONE (16:21)
[2018-03-09] MEDS ORDERED: DEXTROSE 5%-WATER - 50 ML IVPB ONE (16:21)
--- NOTE | 2018-03-09 16:37 | ECHO ---
Name: GUILLERMO ROSAS Exam:Adult Echocardiogram Study Date: 03/09/2018 02:42 PM Age: 42 yrs Reason For Study: HTN Height: 72 in Weight: 312 lb BSA: 2.6 m2 MMode/2D Measurements & Calculations IVSd: 1.1 cm Ao root diam: 3.1 cm LVIDd: 5.6 cm LA dimension: 3.4 cm LVIDs: 3.4 cm LVPWd: 1.3 cm LVPWs: 2.5 cm EDV(Teich): 156.4 ml ESV(Teich): 46.2 ml Doppler Measurements & Calculations MV E max gordon: 79.0 cm/sec Ao V2 max: 143.0 cm/sec MV A max gordon: 47.9 cm/sec Ao max P.2 mmHg MV E/A: 1.6 MV dec time: 0.16 sec LV V1 max P.6 mmHg PA V2 max: 96.4 cm/sec LV V1 max: 94.9 cm/sec PA max P.7 mmHg Med Peak E' Gordon: 8.3 cm/sec Med E/e': 9.5 Lat Peak E' Gordon: 7.9 cm/sec Lat E/e': 10.0 Procedure A complete two-dimensional transthoracic echocardiogram was performed (2D, M-mode, Doppler and color flow Doppler). The study was technically difficult with many images being suboptimal in quality. Left Ventricle There is moderate concentric left ventricular hypertrophy. The left ventricular ejection fraction is normal. Ejection Fraction = 60-65%. No regional wall motion abnormalities noted. Right Ventricle The right ventricle is not well visualized. Atria Normal left and right atrial size and function. Mitral Valve There is no mitral regurgitation noted. Tricuspid Valve There is trace tricuspid regurgitation. There was insufficient TR detected to calculate RV systolic p ressure. Aortic Valve No hemodynamically significant valvular aortic stenosis. No aortic regurgitation is present. Pulmonic Valve The pulmonic valve is not well visualized. Great Vessels The aortic root is normal size. Pericardium/Pleura There is no pericardial effusion. Interpretation Summary The study was technically difficult with many images being suboptimal in quality. There is moderate concentric left ventricular hypertrophy. The left ventricular ejection fraction is normal. The right ventricle is not well visualized. There is trace tricuspid regurgitation. MD Jerson Lechuga 03/09/2018 04:36 PM
--- NOTE | 2018-03-09 16:38 | CON.ID ---
Consult Consult Specialty:: infectious diseases Referred by:: Reason for Consultation:: rt sided flank pain - History of Present Illness Chief Complaint: rt sided flank pain History of Present Illness: 42 year old male with PMHx of HTN ,HLD, who presents with 5 days of RUQ and R lower chest pain. Patient states that Tuesday he was seen at [facility], left AMA when told he would need a CT scan. He is now complaining of RUQ and lower chest pain that he describes as severe, constant. patient also c/o sob and cough with some phlegm patient mentions that whnever he coughs he gets the pain he drinks etoh and smokes,denies drugs - History Source History Provided By: Patient Limitations to Obtaining History: No Limitations - Past Medical History Cardio/Vascular: Yes: HTN, Hyperlipdemia - Alcohol/Substance Use Hx Alcohol Use: Yes (6 pack daily) - Smoking History Smoking history: Current every day smoker Have you smoked in the past 12 months: No Aproximately how many cigarettes per day: 20 Home Medications - Allergies Allergies/Adverse Reactions: Allergies Allergy/AdvReac Type Severity Reaction Status Date / Time cat dander Allergy Verified 03/09/18 02:52 Penicillins Allergy Verified 03/09/18 02:52 - Home Medications Home Medications: Ambulatory Orders RX: Amlodipine Besylate [Norvasc -] 10 mg PO DAILY #30 tablet 03/09/18 RX: Fluticasone Prop 0.05% Nasal [Flonase -] 1 spray NS BID #1 spray 03/09/18 RX: Prednisone 10 mg PO ASDIR #30 tablet 03/09/18 RX: Albuterol Sulfate Inhaler - [Ventolin HFA Inhaler -] 1 - 2 inh PO Q4H #1 inhaler 03/10/18 RX: Nicotine Patch [Nicoderm Patch -] 14 mg TD DAILY PRN #10 patch 03/10/18 Review of Systems - Review of Systems Constitutional: reports: No Symptoms Eyes: reports: No Symptoms HENT: reports: No Symptoms Neck: reports: No Symptoms Cardiovascular: reports: No Symptoms Respiratory: reports: Cough Gastrointestinal: reports: No Symptoms Genitourinary: reports: No Symptoms Musculoskeletal: reports: Muscle Pain, Other (rt sided pain lower chest and rt sided side pain) Integumentary: reports: No Symptoms Neurological: reports: No Symptoms Endocrine: reports: No Symptoms Hematology/Lymphatic: reports: No Symptoms Psychiatric: reports: No Symptoms Physical Exam Vital Signs: Vital Signs Temperature 98.4 F 03/09/18 10:00 Pulse Rate 79 03/09/18 10:00 Respiratory Rate 18 03/09/18 10:00 Blood Pressure 161/100 03/09/18 10:00 O2 Sat by Pulse Oximetry (%) 95 03/09/18 09:00 Constitutional: Yes: Well Nourished, Calm, Mild Distress Eyes: Yes: Conjunctiva Clear HENT: Yes: Atraumatic, Normocephalic Neck: Yes: Supple, Trachea Midline Cardiovascular: Yes: Regular Rate and Rhythm Respiratory: Yes: Regular, CTA Bilaterally Gastrointestinal: Yes: Normal Bowel Sounds, Soft Musculoskeletal: Yes: Muscle Pain, Other (rt sided side pain in the chest lower) Extremities: Yes: WNL Neurological: Yes: Alert, Oriented Psychiatric: Yes: Alert, Oriented Labs: CBC, BMP 03/09/18 05:30 03/09/18 05:30 Imaging - Results Chest X-ray: Report Reviewed, Image Reviewed Ultrasound: Report Reviewed, Image Reviewed Assessment/Plan Problem List - Problems (1) Asthma attack Code(s): J45.901 - UNSPECIFIED ASTHMA WITH (ACUTE) EXACERBATION (2) Hypertension Code(s): I10 - ESSENTIAL (PRIMARY) HYPERTENSION Qualifiers: Hypertension type: unspecified Qualified Code(s): I10 - Essential (primary ) hypertension (3) Hypertensive heart disease Code(s): I11.9 - HYPERTENSIVE HEART DISEASE WITHOUT HEART FAILURE Qualifiers: Heart failure presence: without heart failure Qualified Code(s): I11.9 - Hypertensive heart disease without heart failure (4) Pleurisy Code(s): R09.1 - PLEURISY (5) Sleep apnea Code(s): G47.30 - SLEEP APNEA, UNSPECIFIED (6) Chronic kidney disease (CKD) Code(s): N18.9 - CHRONIC KIDNEY DISEASE, UNSPECIFIED Qualifiers: Chronic kidney disease stage: stage 2 (mild) Qualified Code(s): N18.2 - Chronic kidney disease, stage 2 (mild) (7) Hypertensive urgency Code(s): I16.0 - HYPERTENSIVE URGENCY i do not think there is an infectious element plan continue as per renal pul pain still present will stop abx
[2018-03-09] MEDS: CEFTRIAXONE 1 GM in DEXTROSE 5%-WATER - 50 ML IVPB SCH (16:45)
[2018-03-09] MEDS: methylPREDNISolone NA SUCC 40 MG/1 ML VIAL IVPUSH SCH ×2 (16:46→18:23)
--- NOTE | 2018-03-09 16:51 | PN ---
Teaching Attending Note Name of Resident: German Ryder (Nephrology) ATTENDING PHYSICIAN STATEMENT I saw and evaluated the patient. I reviewed the resident's note and discussed the case with the resident. I agree with the resident's findings and plan as documented. Nephrology Pt is a 42 year old male with pmhx of asthma and uncontrolled HTN who presented to the ER right sided chest pain and wheezign. 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 He says he has had HTN for a very long time however he does not always take meds. He does not follow with a PMD. He denies history of CKD. He denies dysuria or hematuria. pmhx htn obesity hld allergies pcn, cats social smokes 1ppd, drinks beer daily ros wheeze Laboratory Tests 03/08/18 03/08/18 03/08/18 14:24 17:49 18:00 WBC Hgb Plt Count Sodium Potassium Anion Gap BUN Creatinine 1.7 H Creatine Kinase 433 H Albumin Urine Protein 3+ H Urine WBC (Auto) 2 Urine RBC (Auto) 5 03/08/18 03/09/18 03/09/18 22:24 05:30 05:30 WBC 8.4 Hgb 12.7 Plt Count 242 Sodium 138 Potassium 3.6 Anion Gap 7 L BUN 19 H Creatinine 1.7 H Creatine Kinase 369 H Albumin 3.2 L Urine Protein Urine WBC (Auto) Urine RBC (Auto) Current Medications Generic Name Dose Route Start Last Admin Trade Name Freq PRN Reason Stop Dose Admin Acetaminophen 650 mg 03/08/18 19:55 03/08/18 20:40 Tylenol - PO 650 mg Q6H PRN Administration FEVER Albuterol Sulfate 1 amp 03/09/18 14:42 Ventolin 0.083% Nebulizer Soln - NEB Q4H PRN SHORT OF BREATH/WHEEZING Albuterol/Ipratropium 1 amp 03/09/18 16:00 Duoneb - NEB RQID THO Amlodipine Besylate 10 mg 03/08/18 20:00 03/09/18 09:48 Norvasc - PO 10 mg DAILY THO Administration Enoxaparin Sodium 120 mg 03/08/18 17:15 03/08/18 18:06 Lovenox - SQ 120 mg ONCE THO Administration Fluticasone Propionate 1 spray 03/09/18 22:00 Flonase - NS BID THO Heparin Sodium (Porcine) 5,000 unit 03/08/18 22:00 03/09/18 09:48 Heparin - SQ 5,000 unit BID THO Administration Ceftriaxone Sodium 1 gm/ 50 mls @ 100 mls/hr 03/08/18 20:45 03/09/18 16:45 Dextrose IVPB 03/09/18 20:44 100 mls/hr DAILY THO Administration Protocol Methylprednisolone Sodium Succinate 60 mg 03/09/18 14:45 03/09/18 16:46 Solu-Medrol - IVPUSH 03/10/18 02:01 60 mg Q8H-IV THO Administration Morphine Sulfate 3 mg 03/08/18 20:34 03/08/18 22:40 Morphine Sulfate IVPUSH 3 mg Q4H PRN Administration PAIN LEVEL 4 - 6 Last Vital Signs Temp Pulse Resp BP Pulse Ox 98.4 F 79 18 161/100 95 03/09/18 10:00 03/09/18 10:00 03/09/18 10:00 03/09/18 10:00 03/09/18 09:00 Impression 1. COLETTE vs CKD - unclear what baseline is, likely chronic 2. uncontrolled HTN 3. asthma 4. HLD 5. obesity 6. etoh abuse 7. active smoker 8. proteinuria Plan - check renal ultrasound - check prt to on site property manager ratio - cont norvasc and monito bp - will gradually correct bp - pt likely allergic to their new kittens - will need outpt renal workup - recommend weight loss - will follow Dr Kilgore
[2018-03-09] MEDS: ALBUTEROL SO4 2.5/IPRATROPIUM 0.5 INH SOL 3 ML VIAL.NEB. NEB SCH ×2 (17:33→20:45)
--- NOTE | 2018-03-09 17:57 | PN ---
Progress Note, Physician - Current Medication List Current Medications: Active Medications Acetaminophen (Tylenol -) 650 mg PO Q6H PRN PRN Reason: FEVER Last Admin: 03/08/18 20:40 Dose: 650 mg Albuterol Sulfate (Ventolin 0.083% Nebulizer Soln -) 1 amp NEB Q4H PRN PRN Reason: SHORT OF BREATH/WHEEZING Albuterol/Ipratropium (Duoneb -) 1 amp NEB RQID THO Last Admin: 03/09/18 17:33 Dose: Not Given Amlodipine Besylate (Norvasc -) 10 mg PO DAILY [facility] Last Admin: 03/09/18 09:48 Dose: 10 mg Enoxaparin Sodium (Lovenox -) 120 mg SQ ONCE THO Last Admin: 03/08/18 18:06 Dose: 120 mg Fluticasone Propionate (Flonase -) 1 spray NS BID THO Heparin Sodium (Porcine) (Heparin -) 5,000 unit SQ BID [facility] Last Admin: 03/09/18 09:48 Dose: 5,000 unit Ceftriaxone Sodium 1 gm/ (Dextrose) 50 mls @ 100 mls/hr IVPB DAILY [facility]; Protocol Stop: 03/09/18 20:44 Last Admin: 03/09/18 16:45 Dose: 100 mls/hr Methylprednisolone Sodium Succinate (Solu-Medrol -) 60 mg IVPUSH Q8H-IV THO Stop: 03/10/18 02:01 Last Admin: 03/09/18 16:46 Dose: 60 mg - Objective Vital Signs: Vital Signs Temperature 98.4 F 03/09/18 10:00 Pulse Rate 79 03/09/18 10:00 Respiratory Rate 18 03/09/18 10:00 Blood Pressure 161/100 03/09/18 10:00 O2 Sat by Pulse Oximetry (%) 95 03/09/18 09:00 Constitutional: Yes: No Distress HENT: Yes: Atraumatic Neck: Yes: Supple Cardiovascular: Yes: Regular Rate and Rhythm Respiratory: Yes: CTA Bilaterally, Rhonchi Gastrointestinal: Yes: Normal Bowel Sounds Extremities: Yes: WNL Neurological: Yes: Alert, Oriented Labs: CBC, BMP 03/09/18 05:30 03/09/18 05:30 INR, PTT INR 1.02 (0.83-1.09) 03/08/18 14:24 Problem List - Problems (1) Abdominal pain Code(s): R10.9 - UNSPECIFIED ABDOMINAL PAIN Qualifiers: Abdominal location: right upper quadrant Qualified Code(s): R10.11 - Right upper quadrant pain (2) Cholelithiasis Code(s): K80.20 - CALCULUS OF GALLBLADDER W/O CHOLECYSTITIS W/O OBSTRUCTION Qualifiers: Cholelithiasis location: gallbladder Cholecystitis presence: without cholecystitis Biliary obstruction: without biliary obstruction Qualified Code(s): K80.20 - Calculus of gallbladder without cholecystitis without obstruction (3) Hypertension Code(s): I10 - ESSENTIAL (PRIMARY) HYPERTENSION Qualifiers: Hypertension type: unspecified Qualified Code(s): I10 - Essential (primary ) hypertension (4) Hypertensive urgency Code(s): I16.0 - HYPERTENSIVE URGENCY
[2018-03-09] MEDS ORDERED: oxyCODONE HCL 5 MG TABLET PO PRN (17:58)
[2018-03-09] MEDS: ENOXAPARIN NA (PORCINE) 120 MG/0.8 ML DISP.SYRIN SQ SCH (18:43)
[2018-03-09] MEDS ORDERED: predniSONE 20 MG TABLET (UD) PO SCH (19:35)
[2018-03-09] MEDS: FLUTICASONE PROP 0.05% 16 GM NASAL SPRAY NS SCH (21:53)
[2018-03-10] MEDS: methylPREDNISolone NA SUCC 40 MG/1 ML VIAL IVPUSH SCH (01:54)
[2018-03-10] MEDS: ALBUTEROL SO4 2.5/IPRATROPIUM 0.5 INH SOL 3 ML VIAL.NEB. NEB SCH ×3 (08:12→16:46)
[2018-03-10] MEDS ORDERED: FLU VACCINE QUAD 60 MCG/0.5 ML (MDV 18-19) IM ONE (09:00)
[2018-03-10] MEDS ORDERED: PNEUMOCOCCAL 23 VACCINE 0.5 ML VIAL IM ONE (09:00)
[2018-03-10] MEDS ORDERED: predniSONE 20 MG TABLET (UD) PO SCH ×2 (09:35→10:00)
--- NOTE | 2018-03-10 09:42 | PN ---
Physical Exam: SUBJECTIVE: Pt reports his breathing better today. No acute events overnight or on monitor. No complaints today. OBJECTIVE: Vital Signs Period Temp Pulse Resp BP Sys/Coffman Pulse Ox Last 24 Hr 98.4 F-98.6 F 71-103 18-20 154-177/93-105 95 GENERAL: NAD, Awake, alert, and fully oriented, sitting in bed HEENT:LUIS FELIPE, sclera anicteric, MMM NECK: No JVD LUNGS: Improved breath sounds; minimal wheezes at bases with good inspiratory effort. No crackles. No accessory muscle use. On RA HEART: RRR, normal S1 and S2 without murmur ABDOMEN: Soft, obese, NT/ND, normoactive BS EXTREMITIES: 2+ pulses, warm, No peripheral edema. PSYCHIATRIC: Cooperative. Good eye contact. Appropriate mood and affect. SKIN: no rashes or lesions noted Laboratory Results - last 24 hr 03/09/18 19:30 Creatine Kinase 268 Creatine Kinase Index 0.3 CK-MB (CK-2) < 1.0 Troponin I < 0.02 Active Medications Generic Name Dose Route Start Last Admin Trade Name Freq PRN Reason Stop Dose Admin Acetaminophen 650 mg 03/08/18 19:55 03/08/18 20:40 Tylenol - PO 650 mg Q6H PRN Administration FEVER Albuterol Sulfate 1 amp 03/09/18 14:42 Ventolin 0.083% Nebulizer Soln - NEB Q4H PRN SHORT OF BREATH/WHEEZING Albuterol/Ipratropium 1 amp 03/09/18 16:00 03/10/18 08:12 Duoneb - NEB 1 amp RQID THO Administration Amlodipine Besylate 10 mg 03/08/18 20:00 03/09/18 09:48 Norvasc - PO 10 mg DAILY THO Administration Enoxaparin Sodium 120 mg 03/08/18 17:15 03/09/18 18:43 Lovenox - SQ Not Given ONCE THO Fluticasone Propionate 1 spray 03/09/18 22:00 03/09/18 21:53 Flonase - NS 1 spray BID THO Administration Heparin Sodium (Porcine) 5,000 unit 03/08/18 22:00 03/09/18 21:53 Heparin - SQ 5,000 unit BID THO Administration Oxycodone HCl 10 mg 03/09/18 17:58 03/09/18 23:19 Roxicodone - PO 10 mg Q6H PRN Administration PAIN LEVEL 4 - 6 Prednisone 40 mg 03/10/18 09:35 Deltasone - PO DAILY THO ASSESSMENT/PLAN: Chronic kidney disease (IIIa-A2) Proteinuria Hypertensive urgency HLD Pleuritic chest pain Asthma exacerbation --UA reviewed showing 3+ Protein and hyaline casts --Need to quantify proteinuria; f/u urine studies --Likely 2/2 to uncontrolled HTN however cannot r/o renal dz as etiology for HTN --Renal US reviewed and noted --Needs stricter BP control --Continue Norvasc 10mg qDaily --Recommend starting ARB (Losartan 25mg qDaily) for further control --Stat BMP ordered --Duoneb and medrol mgmt per pulmonology --Smoking cessation; alcohol cessation encouraged (observe for withdrawals) --Spoke and discussed with pt how he will need to follow-up regularly with emt paramedic. Possibility of renal Bx on an outpatient basis to r/o any evolving Renal pathology. Pt expressed understanding and all questions answered. Dispo: Continue current mgmt and stricter BP control Case discussed with Dr. Magui Ryder, DO - IM PGY-2 Visit type - Emergency Visit Emergency Visit: Yes ED Registration Date: 03/08/18 Care time: The patient presented to the Emergency Department on the above date and was hospitalized for further evaluation of their emergent condition. - New Patient This patient is new to me today: No - Critical Care Critical Care patient: No
[2018-03-10] MEDS: amLODIPine BESYLATE 10 MG TABLET (FP) PO SCH (09:53)
[2018-03-10] MEDS: HEPARIN NA (PORCINE) 5,000 UNITS/ML 1ML VIAL SQ SCH (09:53)
[2018-03-10] MEDS: FLUTICASONE PROP 0.05% 16 GM NASAL SPRAY NS SCH (09:53)
--- NOTE | 2018-03-10 10:21 | PN ---
Physical Exam: SUBJECTIVE: Patient seen and examined this AM. He states the pain was well controlled overnight but has come back. He is still coughing up a large ammount of sputum but states that overall his breathing feels better than yesterday. OBJECTIVE: Vital Signs Period Temp Pulse Resp BP Sys/Coffman Pulse Ox Last 24 Hr 98.5 F-98.6 F 71-103 18-20 154-177/93-105 95 GENERAL: A&O, no acute distress HEAD: Normocephalic, atraumatic. EYES: PERRL, no scleral icterus EARS, NOSE, THROAT: oropharynx clear without exudates. Moist mucous membranes. LUNGS: mild wheezes HEART: Regular rate and rhythm, normal S1 and S2 without murmur ABDOMEN: Soft, nontender to palpation, normoactive bowel sounds MUSCULOSKELETAL: No point tendernesss, pain is somewhat reproducible to deep palpation of ribs on the right, improving from yesterday EXTREMITIES: 2+ pulses, warm, well-perfused. No peripheral edema. No calf tenderness, erythema or swelling NEUROLOGICAL: Cranial nerves II-XII grossly intact. Normal speech. Laboratory Results - last 24 hr 03/09/18 19:30 Creatine Kinase 268 Creatine Kinase Index 0.3 CK-MB (CK-2) < 1.0 Troponin I < 0.02 Active Medications Generic Name Dose Route Start Last Admin Trade Name Freq PRN Reason Stop Dose Admin Acetaminophen 650 mg 03/08/18 19:55 03/08/18 20:40 Tylenol - PO 650 mg Q6H PRN Administration FEVER Albuterol Sulfate 1 amp 03/09/18 14:42 Ventolin 0.083% Nebulizer Soln - NEB Q4H PRN SHORT OF BREATH/WHEEZING Albuterol/Ipratropium 1 amp 03/09/18 16:00 03/10/18 08:12 Duoneb - NEB 1 amp RQID THO Administration Amlodipine Besylate 10 mg 03/08/18 20:00 03/10/18 09:53 Norvasc - PO 10 mg DAILY THO Administration Enoxaparin Sodium 120 mg 03/08/18 17:15 03/09/18 18:43 Lovenox - SQ Not Given ONCE THO Fluticasone Propionate 1 spray 03/09/18 22:00 03/10/18 09:53 Flonase - NS 1 spray BID THO Administration Heparin Sodium (Porcine) 5,000 unit 03/08/18 22:00 03/10/18 09:53 Heparin - SQ 5,000 unit BID THO Administration Oxycodone HCl 10 mg 03/09/18 17:58 03/09/18 23:19 Roxicodone - PO 10 mg Q6H PRN Administration PAIN LEVEL 4 - 6 Prednisone 40 mg 03/10/18 09:35 03/10/18 09:53 Deltasone - PO 40 mg DAILY THO Administration ASSESSMENT/PLAN: 42 yo male with PMH HTN, HLD, Asthma admitted with a complaint of SOB, productive cough for white sputum, and right sided pleuritic chest pain for 1 week. Acute Respiratory Distress with productive cough -Likely secondary to exacerbation of uncontrolled asthma, Unlikely infectious in etiology -ID consult -CXR noted without infiltrate -Duonebs QID -Prednisone 40 mg PO Daily for 5 days. -Albuterol NEBS Q4 PRN Likely TARYN -Sleep screen, pt will likely need outpatient sleep study Tobacco Dependence -Nicoderm patch Pleuritic Chest Pain -likely msk secondary to acute exacerbation of asthma and coughing -Unlikely PE with negative LE Duplex, saturating well on room air -No need for V/Q scan at this time -Morphine 3mg IV Q4 without much relief -Cardiology Consult HTN Urgency -Pt does not take medications outpatient due to prior insurance issues, but states he will find a primary and follow up -219/141 in ED -Norvasc 10 mg PO Daily, blood pressure improved COLETTE vs probable CKD -Proteinurea noted on UA points towards CKD -Likely secondary to chronic uncontrolled HTN -control HTN during this admission and as an outpatient -avoid nephrotoxic drugs -Nephrology Consult DVT Prophylaxis -Heparin 5000 units SQ BID FEN -Fluids: none -Electrolytes: Monitor and replete lytes -Nutrition: Cholesterol/Fat/Na controlled diet Dispo: We will continue to follow the patient. Thank you for this consultative opportunity. Visit type - Emergency Visit Emergency Visit: Yes ED Registration Date: 03/08/18 Care time: The patient presented to the Emergency Department on the above date and was hospitalized for further evaluation of their emergent condition. - New Patient This patient is new to me today: No - Critical Care Critical Care patient: No
[2018-03-10 10:57] LABS: URINE APPEARANCE CLEAR; URINE BILIRUBIN NEGATIVE (<2.0 mg/dL); URINE COLOR LTYELLOW; URINE GLUCOSE (UA) 1+ (NEGATIVE); URINE KETONE NEGATIVE (NEGATIVE); URINE LEUK ESTERASE NEGATIVE (NEGATIVE); URINE NITRITE NEGATIVE (NEGATIVE); URINE PROTEIN 2+ (NEGATIVE); URINE UROBILINOGEN NEGATIVE mg/dL (0.2-1.0)
[2018-03-10 10:59] LABS: EPI CELLS RARE /HPF (FEW); URINE MUCUS RARE
--- NOTE | 2018-03-10 11:25 | PN ---
Progress Note, Physician History of Present Illness: Right lower pleuritic and post-tussive chest pain and splinting. Patient also c/ o sob and cough with some phlegm, BP improved. - Current Medication List Current Medications: Active Medications Acetaminophen (Tylenol -) 650 mg PO Q6H PRN PRN Reason: FEVER Last Admin: 03/08/18 20:40 Dose: 650 mg Albuterol Sulfate (Ventolin 0.083% Nebulizer Soln -) 1 amp NEB Q4H PRN PRN Reason: SHORT OF BREATH/WHEEZING Albuterol/Ipratropium (Duoneb -) 1 amp NEB RQID [facility] Last Admin: 03/10/18 11:13 Dose: 1 amp Amlodipine Besylate (Norvasc -) 10 mg PO DAILY [facility] Last Admin: 03/10/18 09:53 Dose: 10 mg Enoxaparin Sodium (Lovenox -) 120 mg SQ ONCE [facility] Last Admin: 03/09/18 18:43 Dose: Not Given Fluticasone Propionate (Flonase -) 1 spray NS BID [facility] Last Admin: 03/10/18 09:53 Dose: 1 spray Heparin Sodium (Porcine) (Heparin -) 5,000 unit SQ BID [facility] Last Admin: 03/10/18 09:53 Dose: 5,000 unit Oxycodone HCl (Roxicodone -) 10 mg PO Q6H PRN PRN Reason: PAIN LEVEL 4 - 6 Last Admin: 03/09/18 23:19 Dose: 10 mg Prednisone (Deltasone -) 40 mg PO DAILY [facility] Last Admin: 03/10/18 09:53 Dose: 40 mg - Objective Vital Signs: Vital Signs Temperature 98.2 F 03/10/18 10:00 Pulse Rate 107 H 03/10/18 10:00 Respiratory Rate 20 03/10/18 10:00 Blood Pressure 158/107 H 03/10/18 10:00 O2 Sat by Pulse Oximetry (%) 95 03/10/18 09:00 Constitutional: Yes: No Distress, Calm Neck: Yes: Supple Cardiovascular: Yes: Regular Rate and Rhythm Respiratory: Yes: Regular, Diminished Gastrointestinal: Yes: Normal Bowel Sounds, Soft, Abdomen, Obese Edema: No Labs: CBC, BMP 03/09/18 05:30 03/09/18 05:30 INR, PTT INR 1.02 (0.83-1.09) 03/08/18 14:24 - ....Imaging Ultrasound: Report Reviewed (No hydro) Problem List - Problems (1) Hypertensive heart disease Code(s): I11.9 - HYPERTENSIVE HEART DISEASE WITHOUT HEART FAILURE Qualifiers: Heart failure presence: without heart failure Qualified Code(s): I11.9 - Hypertensive heart disease without heart failure (2) Chronic kidney disease (CKD) Code(s): N18.9 - CHRONIC KIDNEY DISEASE, UNSPECIFIED Qualifiers: Chronic kidney disease stage: stage 2 (mild) Qualified Code(s): N18.2 - Chronic kidney disease, stage 2 (mild) (3) Pleurisy Code(s): R09.1 - PLEURISY (4) Hypertensive urgency Code(s): I16.0 - HYPERTENSIVE URGENCY (5) Proteinuria Code(s): R80.9 - PROTEINURIA, UNSPECIFIED Qualifiers: Proteinuria type: unspecified Qualified Code(s): R80.9 - Proteinuria, unspecified Assessment/Plan 03/09/2018 Echo: Mod cLVH, normal LV fxn, tr TR 1. Pleurisy/Splinting 2. Acute Asthma Exacerbation improving 2. Hypertensive urgency 3. CKD with proteinuria 4. Hypertensive heart disease 5. OSAS P:1. Continue Norvasc 10 qd, started losartan 25 qd with uptitration as tolerated as renal fxn stable given proteinuria 2. Ruled out for MD, V/Q scan deferred, unlikely PE, BD, oral steroids, outpatient PFTs and PSG 3. Diet, lifestyle, medical compliance advised
[2018-03-10 11:28] LABS: RATIO URIN PROTEIN/URIN CREAT 1.337 MG/DL
[2018-03-10] MEDS ORDERED: LOSARTAN POTASSIUM 25 MG TABLET PO SCH (11:45)
--- NOTE | 2018-03-10 12:11 | PN ---
Teaching Attending Note Name of Resident: German Ryder (Nephrology) ATTENDING PHYSICIAN STATEMENT I saw and evaluated the patient. I reviewed the resident's note and discussed the case with the resident. I agree with the resident's findings and plan as documented. Renal Pt seen and examined at bedside. He is awake and alert. He denies shortness of breath. Current Medications Generic Name Dose Route Start Last Admin Trade Name Freq PRN Reason Stop Dose Admin Acetaminophen 650 mg 03/08/18 19:55 03/08/18 20:40 Tylenol - PO 650 mg Q6H PRN Administration FEVER Albuterol Sulfate 1 amp 03/09/18 14:42 Ventolin 0.083% Nebulizer Soln - NEB Q4H PRN SHORT OF BREATH/WHEEZING Albuterol/Ipratropium 1 amp 03/09/18 16:00 03/10/18 11:13 Duoneb - NEB 1 amp RQID THO Administration Amlodipine Besylate 10 mg 03/08/18 20:00 03/10/18 09:53 Norvasc - PO 10 mg DAILY THO Administration Fluticasone Propionate 1 spray 03/09/18 22:00 03/10/18 09:53 Flonase - NS 1 spray BID THO Administration Heparin Sodium (Porcine) 5,000 unit 03/08/18 22:00 03/10/18 09:53 Heparin - SQ 5,000 unit BID THO Administration Losartan Potassium 25 mg 03/10/18 11:45 03/10/18 11:41 Cozaar - PO 25 mg DAILY THO Administration Oxycodone HCl 10 mg 03/09/18 17:58 03/09/18 23:19 Roxicodone - PO 10 mg Q6H PRN Administration PAIN LEVEL 4 - 6 Prednisone 40 mg 03/10/18 09:35 03/10/18 09:53 Deltasone - PO 40 mg DAILY THO Administration Laboratory Tests 03/10/18 10:20 Protein/Creatinin Ratio 1.337 Last Vital Signs Temp Pulse Resp BP Pulse Ox 98.2 F 107 H 20 158/107 H 95 03/10/18 10:00 03/10/18 10:00 03/10/18 10:00 03/10/18 10:00 03/10/18 09:00 cardio s1s2 pulm clear GI soft, obese ext neg edema neuro awake and alert Impression 1. COLETTE vs CKD - unclear what baseline is, likely chronic 2. uncontrolled HTN 3. asthma 4. HLD 5. obesity 6. etoh abuse 7. active smoker 8. proteinuria Plan - renal ultrasound reviewed - can start cozaar at 25 mg and titrate up - repeat bmp and monitor lytes and senior health consultant - cont norvas - cardio follow up - spoke to pt at length about lifestyle modification including diet, smoking and drinking - will need renal workup after discharge
[2018-03-10 12:38] LABS: ANION GAP 12 MMOL/L (8-16); BLOOD UREA NITROGEN 22 mg/dL (7-18); CALCIUM 9.1 mg/dL (8.5-10.1); CHLORIDE 102 mmol/L (98-107); CO2 26 mmol/L (21-32); CREATININE 1.7 mg/dL (0.55-1.3); GLUCOSE,RANDOM 116 mg/dL (74-106); POTASSIUM 3.8 mmol/L (3.5-5.1); SODIUM 140 mmol/L (136-145)
--- NOTE | 2018-03-10 12:43 | PN ---
Teaching Attending Note Name of Resident: Thaddeus Kaur ATTENDING PHYSICIAN STATEMENT I saw and evaluated the patient. I reviewed the resident's note and discussed the case with the resident. I agree with the resident's findings and plan as documented. PULMONARY FEELING BETTER,LESS DYSPNEIC. ASSESSMENT AND PLAN: Acute Asthma Exacerbation improving Atypical Back Pain Uncontrolled HTN Hyperlipidemia Likely CKD OSAS - short course of medrol - inhaled bronchodilators standing and PRN - sleep screen - when ready for discharge, can discharge on LABA/ICS as well as albuterol inhaler - outpt PFTs - smoking cessation - DVT prophylaxis - smoking cessation DR MCKENZIE Problem List - Problems (1) Asthma attack Code(s): J45.901 - UNSPECIFIED ASTHMA WITH (ACUTE) EXACERBATION (2) Hypertension Code(s): I10 - ESSENTIAL (PRIMARY) HYPERTENSION Qualifiers: Hypertension type: unspecified Qualified Code(s): I10 - Essential (primary ) hypertension (3) Hypertensive heart disease Code(s): I11.9 - HYPERTENSIVE HEART DISEASE WITHOUT HEART FAILURE Qualifiers: Heart failure presence: without heart failure Qualified Code(s): I11.9 - Hypertensive heart disease without heart failure (4) Pleurisy Code(s): R09.1 - PLEURISY (5) Sleep apnea Code(s): G47.30 - SLEEP APNEA, UNSPECIFIED (6) Chronic kidney disease (CKD) Code(s): N18.9 - CHRONIC KIDNEY DISEASE, UNSPECIFIED Qualifiers: Chronic kidney disease stage: stage 2 (mild) Qualified Code(s): N18.2 - Chronic kidney disease, stage 2 (mild) (7) Hypertensive urgency Code(s): I16.0 - HYPERTENSIVE URGENCY
--- NOTE | 2018-03-10 12:53 | PN ---
Progress Note, Physician History of Present Illness: patient still c/o of pain in the rt back says last night pain meds made him feel much better now the pain coming back again - Current Medication List Current Medications: Active Medications Acetaminophen (Tylenol -) 650 mg PO Q6H PRN PRN Reason: FEVER Last Admin: 03/08/18 20:40 Dose: 650 mg Albuterol Sulfate (Ventolin 0.083% Nebulizer Soln -) 1 amp NEB Q4H PRN PRN Reason: SHORT OF BREATH/WHEEZING Albuterol/Ipratropium (Duoneb -) 1 amp NEB RQID [facility] Last Admin: 03/10/18 11:13 Dose: 1 amp Amlodipine Besylate (Norvasc -) 10 mg PO DAILY [facility] Last Admin: 03/10/18 09:53 Dose: 10 mg Fluticasone Propionate (Flonase -) 1 spray NS BID [facility] Last Admin: 03/10/18 09:53 Dose: 1 spray Heparin Sodium (Porcine) (Heparin -) 5,000 unit SQ BID [facility] Last Admin: 03/10/18 09:53 Dose: 5,000 unit Losartan Potassium (Cozaar -) 25 mg PO DAILY [facility] Last Admin: 03/10/18 11:41 Dose: 25 mg Oxycodone HCl (Roxicodone -) 10 mg PO Q6H PRN PRN Reason: PAIN LEVEL 4 - 6 Last Admin: 03/09/18 23:19 Dose: 10 mg Prednisone (Deltasone -) 40 mg PO DAILY [facility] Last Admin: 03/10/18 09:53 Dose: 40 mg - Objective Vital Signs: Vital Signs Temperature 98.2 F 03/10/18 10:00 Pulse Rate 107 H 03/10/18 10:00 Respiratory Rate 20 03/10/18 10:00 Blood Pressure 158/107 H 03/10/18 10:00 O2 Sat by Pulse Oximetry (%) 95 03/10/18 09:00 Constitutional: Yes: Calm, Mild Distress, Obese Neck: Yes: Supple, Trachea Midline Cardiovascular: Yes: Regular Rate and Rhythm Gastrointestinal: Yes: Normal Bowel Sounds, Soft Musculoskeletal: Yes: Back Pain Extremities: Yes: WNL Neurological: Yes: Alert, Oriented Psychiatric: Yes: Alert Labs: CBC, BMP 03/09/18 05:30 03/10/18 12:05 INR, PTT INR 1.02 (0.83-1.09) 03/08/18 14:24 - ....Imaging Ultrasound: Report Reviewed, Image Reviewed Assessment/Plan Problem List - Problems (1) Asthma attack Code(s): J45.901 - UNSPECIFIED ASTHMA WITH (ACUTE) EXACERBATION (2) Hypertension Code(s): I10 - ESSENTIAL (PRIMARY) HYPERTENSION Qualifiers: Hypertension type: unspecified Qualified Code(s): I10 - Essential (primary ) hypertension (3) Hypertensive heart disease Code(s): I11.9 - HYPERTENSIVE HEART DISEASE WITHOUT HEART FAILURE Qualifiers: Heart failure presence: without heart failure Qualified Code(s): I11.9 - Hypertensive heart disease without heart failure (4) Pleurisy Code(s): R09.1 - PLEURISY (5) Sleep apnea Code(s): G47.30 - SLEEP APNEA, UNSPECIFIED (6) Chronic kidney disease (CKD) Code(s): N18.9 - CHRONIC KIDNEY DISEASE, UNSPECIFIED Qualifiers: Chronic kidney disease stage: stage 2 (mild) Qualified Code(s): N18.2 - Chronic kidney disease, stage 2 (mild) (7) Hypertensive urgency Code(s): I16.0 - HYPERTENSIVE URGENCY plan continue as per renal pul pain still present abx stopped
[2018-03-10] MEDS ORDERED: NICOTINE 14 MG/24 HOURS TOPICAL PATCH TD PRN (13:57)
[2018-03-10 18:14] VITALS: BP 142/99; PULSE 124; TEMP 98.3
--- NOTE | 2018-03-10 18:16 | PN ---
Progress Note, Physician - Current Medication List Current Medications: Active Medications Acetaminophen (Tylenol -) 650 mg PO Q6H PRN PRN Reason: FEVER Last Admin: 03/08/18 20:40 Dose: 650 mg Albuterol Sulfate (Ventolin 0.083% Nebulizer Soln -) 1 amp NEB Q4H PRN PRN Reason: SHORT OF BREATH/WHEEZING Albuterol/Ipratropium (Duoneb -) 1 amp NEB RQID [facility] Last Admin: 03/10/18 16:46 Dose: 1 amp Amlodipine Besylate (Norvasc -) 10 mg PO DAILY [facility] Last Admin: 03/10/18 09:53 Dose: 10 mg Fluticasone Propionate (Flonase -) 1 spray NS BID [facility] Last Admin: 03/10/18 09:53 Dose: 1 spray Heparin Sodium (Porcine) (Heparin -) 5,000 unit SQ BID [facility] Last Admin: 03/10/18 09:53 Dose: 5,000 unit Losartan Potassium (Cozaar -) 25 mg PO DAILY [facility] Last Admin: 03/10/18 11:41 Dose: 25 mg Nicotine (Nicoderm Patch -) 14 mg TD DAILY PRN PRN Reason: AGITATION Oxycodone HCl (Roxicodone -) 10 mg PO Q6H PRN PRN Reason: PAIN LEVEL 4 - 6 Last Admin: 03/09/18 23:19 Dose: 10 mg Prednisone (Deltasone -) 40 mg PO DAILY [facility] Last Admin: 03/10/18 09:53 Dose: 40 mg - Objective Vital Signs: Vital Signs Temperature 98.3 F 03/10/18 17:00 Pulse Rate 124 H 03/10/18 17:00 Respiratory Rate 21 H 03/10/18 17:00 Blood Pressure 142/99 03/10/18 17:00 O2 Sat by Pulse Oximetry (%) 95 03/10/18 09:00 Labs: CBC, BMP 03/09/18 05:30 03/10/18 12:05 INR, PTT INR 1.02 (0.83-1.09) 03/08/18 14:24 Problem List - Problems (1) Abdominal pain Code(s): R10.9 - UNSPECIFIED ABDOMINAL PAIN Qualifiers: Abdominal location: right upper quadrant Qualified Code(s): R10.11 - Right upper quadrant pain (2) Cholelithiasis Code(s): K80.20 - CALCULUS OF GALLBLADDER W/O CHOLECYSTITIS W/O OBSTRUCTION Qualifiers: Cholelithiasis location: gallbladder Cholecystitis presence: without cholecystitis Biliary obstruction: without biliary obstruction Qualified Code(s): K80.20 - Calculus of gallbladder without cholecystitis without obstruction (3) Hypertension Code(s): I10 - ESSENTIAL (PRIMARY) HYPERTENSION Qualifiers: Hypertension type: unspecified Qualified Code(s): I10 - Essential (primary ) hypertension (4) Hypertensive urgency Code(s): I16.0 - HYPERTENSIVE URGENCY
--- NOTE | 2018-03-10 18:16 | DS ---
Physical Examination Vital Signs: Vital Signs Temperature 98.3 F 03/10/18 17:00 Pulse Rate 124 H 03/10/18 17:00 Respiratory Rate 21 H 03/10/18 17:00 Blood Pressure 142/99 03/10/18 17:00 O2 Sat by Pulse Oximetry (%) 95 03/10/18 09:00 Labs: CBC, BMP 03/09/18 05:30 03/10/18 12:05 Discharge Summary Reason For Visit: HYPERTENSIVE URGENCY, ABD PAIN, CHOLELITHIASIS Current Active Problems Abdominal pain (Acute) Asthma attack (Acute) Cholelithiasis (Acute) Chronic kidney disease (CKD) (Acute) Hypertension (Acute) Hypertensive heart disease (Acute) Hypertensive urgency (Acute) Pleurisy (Acute) Proteinuria (Acute) Sleep apnea (Acute) - Instructions - Home Medications Comprehensive Discharge Medication List: Ambulatory Orders Amlodipine Besylate [Norvasc -] 10 mg PO DAILY #30 tablet 03/09/18 Fluticasone Prop 0.05% Nasal [Flonase -] 1 spray NS BID #1 spray 03/09/18 Prednisone 10 mg PO ASDIR #30 tablet 03/09/18 Albuterol Sulfate Inhaler - [Ventolin HFA Inhaler -] 1 - 2 inh PO Q4H #1 inhaler 03/10/18 Nicotine Patch [Nicoderm Patch -] 14 mg TD DAILY PRN #10 patch 03/10/18
== END 2018-03-10 19:09 | disposition home or self-care (01) | DRG 141 ==
LOC: JER 12:46 → JERBED 18:10 → J4W 03-09 03:01
PROVIDERS: ADMIT Internal Medicine; ATTEND Internal Medicine
DX: J45.901 Unspecified asthma with (acute) exacerbation (principal); I16.0 Hypertensive urgency; Z68.41 Body mass index [BMI] 40.0-44.9, adult; E78.5 Hyperlipidemia, unspecified; E66.9 Obesity, unspecified; Z88.0 Allergy status to penicillin; Z91.14 Patient's other noncompliance with medication regimen; K80.20 Calculus of gallbladder without cholecystitis without obstruction; I12.9 Hypertensive chronic kidney disease with stage 1 through stage 4 chronic kidney disease, or unspecified chronic kidney disease; N18.2 Chronic kidney disease, stage 2 (mild); J45.909 Unspecified asthma, uncomplicated; R06.03 Acute respiratory distress; R07.89 Other chest pain; M54.9 Dorsalgia, unspecified; F10.10 Alcohol abuse, uncomplicated; F17.210 Nicotine dependence, cigarettes, uncomplicated; G47.33 Obstructive sleep apnea (adult) (pediatric)
CPT/HCPCS: 36415; 71045-TC-FY; 76705-TC; 76775-TC; 80048; 80053; 81003; 81015; 82436; 82550; 82553; 82570; 83036; 83605; 84133; 84156; 84300; 84484; 85025; 85379; 85610; 85730; 86850; 86900; 86901; 87086; 90688; 90732; 93005; 93010; 93306-TC; 93970-TC; 94640; 99285-25; G0008; G0009; J1644